=== PATIENT | male | born 1955 | race Caucasian/White ===

== ENCOUNTER 2016-07-20 22:49 | Emergency (ER) | payer OTHER ==
[~2016-07-20] VITALS: Ht 182.9 cm; Wt 115.0 kg
[~2016-07-20 22:49] MED LIST: AMOX1TAB61 PO; METF500T4 PO; MULT-658 PO; MULT1TAB77 PO; OMEG1CAP6 PO; PRED-220 PO; PREG75CA PO; RANI150T6 PO; TERA10CA3 PO; TIOT18CA IH
[2016-07-20 22:55] VITALS: BP 154/67
--- NOTE | 2016-07-20 23:12 | PHYS DOC ---
Past History Past Medical History: Bronchitis, COPD, Diabetes Past Surgical History: Knee Replacement Alcohol Use: None Drug Use: None Adult General Chief Complaint Chief Complaint: SHORTNESS OF BREATH HPI HPI A she is a pleasant 61-year-old male with a known history of COPD although he quit smoking in 1991, history of diabetes on metformin, hypertension who presents with shortness of breath has been ongoing for the last week or so. Patient describes a nonproductive cough chest wall pain with coughing described as a burning with no production of sputum. No fevers, no recent travel, no recent antibiotics. The trauma he is not exertionally short of breath. He has been using his inhaler without a spacer for last week with minimal improvement of his symptoms. He's had no intubations, no recent steroid usage, he has been diagnosed with bronchitis in the past, he also has had a questionable history of sleep apnea for which she is on no oxygen or CPAP at home. is mainly concerned that is progressive shortness of breath is not improving treatments at home. She describes the chest pain as burning worsening with deep breaths and cough not radiating to his neck, his back, or his arms. Review of Systems Review of Systems Constitutional: Denies fever or chills [] Eyes: Denies change in visual acuity, redness, or eye pain [] HENT: Denies nasal congestion or sore throat [] Respiratory: Please of nonproductive cough and shortness of breath Cardiovascular: No additional information not addressed in HPI [] GI: Denies abdominal pain, nausea, vomiting, bloody stools or diarrhea [] : Denies dysuria or hematuria [] Musculoskeletal: Denies back pain or joint pain [] Integument: Denies rash or skin lesions [] Neurologic: Legs of generalized fatigue without focal weakness or headache Endocrine: Denies polyuria or polydipsia [] Current Medications Current Medications Current Medications Medications (Trade) Dose Ordered Sig/Jose M Start Time Stop Time Status Last Admin Dose Admin Albuterol/ Ipratropium (Duoneb) 3 ml 1X ONCE 07/20/16 23:30 07/20/16 23:31 Methylprednisolone Sodium Succinate (SOLU-Medrol 125MG VIAL) 125 mg 1X ONCE 07/20/16 23:30 07/20/16 23:31 Sodium Chloride 1,000 ml @ 1,000 mls/hr Q1H 07/20/16 23:30 07/21/16 00:29 Sodium Chloride (Normal Saline Flush) 10 ml 1X ONCE 07/20/16 23:30 07/20/16 23:31 Allergies Allergies Allergies Coded Allergies Type Severity Reaction Last Updated Verified No Known Drug Allergies 10/21/15 No Physical Exam Physical Exam Added mild tachypnea without hypoxia noted hypertension without fever. Constitutional: Well developed, well nourished, is overweight obviously uncomfortable HENT: Normocephalic, atraumatic, bilateral external ears normal, dry mucous membranes, no oral exudates, nose normal. [] Eyes: PERRLA, EOMI, conjunctiva normal, no discharge. [] Neck: Normal range of motion, no tenderness, supple, no stridor. [] Cardiovascular:Heart rate regular rhythm, no murmur [] Lungs & Thorax: Increased breath sounds bilaterally with localized wheezing in the lower lung page with cough. No course rhonchi Abdomen: Bowel sounds normal, soft, no tenderness, no masses, no pulsatile masses. [] Skin: Warm, dry, no erythema, no rash. [] Back: No tenderness, no CVA tenderness. [] Extremities: No tenderness, no cyanosis, no clubbing, ROM intact, no edema. [] Neurologic: Alert and oriented X 3, normal motor function, normal sensory function, no focal deficits noted. [] Psychologic: Affect normal, judgement normal, mood normal. [] Current Patient Data Vital Signs Vital Sign - Last 24 Hours 07/20/16 07/20/16 07/20/16 22:55 23:19 23:30 Temp 98.1 Pulse 81 Resp 24 22 B/P (MAP) 154/67 (96) Pulse Ox 96 97 97 O2 Delivery Room Air Room Air Room Air Lab Results Laboratory Tests Test 07/20/16 23:30 07/20/16 23:45 White Blood Count 9.7 x10^3/uL (4.0-11.0) Red Blood Count 4.55 x10^6/uL (4.30-5.70) Hemoglobin 13.1 g/dL (13.0-17.5) Hematocrit 38.4 % (39.0-53.0) L Mean Corpuscular Volume 84 fL (79-100) Mean Corpuscular Hemoglobin 29 pg (25-35) Mean Corpuscular Hemoglobin Concent 34 g/dL (31-37) Red Cell Distribution Width 13.7 % (11.5-14.5) Platelet Count 266 x10^3/uL (140-400) Neutrophils (%) (Auto) 57 % (31-73) Lymphocytes (%) (Auto) 31 % (24-48) Monocytes (%) (Auto) 10 % (0-9) H Eosinophils (%) (Auto) 1 % (0-3) Basophils (%) (Auto) 0 % (0-3) Neutrophils # (Auto) 5.6 x10^3uL (1.8-7.7) Lymphocytes # (Auto) 3.0 x10^3/uL (1.0-4.8) Monocytes # (Auto) 1.0 x10^3/uL (0.0-1.1) Eosinophils # (Auto) 0.1 x10^3/uL (0.0-0.7) Basophils # (Auto) 0.0 x10^3/uL (0.0-0.2) Sodium Level 141 mmol/L (136-145) Potassium Level 3.7 mmol/L (3.5-5.1) Chloride Level 104 mmol/L (98-107) Carbon Dioxide Level 31 mmol/L (21-32) Anion Gap 6 (6-14) Blood Urea Nitrogen 15 mg/dL (8-26) Creatinine 1.3 mg/dL (0.7-1.3) Estimated GFR (Cockcroft-Gault) 56.5 BUN/Creatinine Ratio 12 (6-20) Glucose Level 147 mg/dL (70-99) H Calcium Level 9.0 mg/dL (8.5-10.1) Total Bilirubin 0.3 mg/dL (0.2-1.0) Aspartate Amino Transferase (AST) 16 U/L (15-37) Alanine Aminotransferase (ALT) 38 U/L (16-63) Alkaline Phosphatase 88 U/L (46-116) Creatine Kinase 245 U/L (39-308) Creatine Kinase MB (Mass) 1.5 ng/mL (0.0-3.6) Creatine Kinase MB Relative Index 0.6 % (0-4) Troponin I Quantitative < 0.017 ng/mL (0-0.055) SN-Vmo-U-Type Natriuretic Peptide 73 pg/mL (0-124) Total Protein 7.4 g/dL (6.4-8.2) Albumin 3.4 g/dL (3.4-5.0) Albumin/Globulin Ratio 0.9 (1.0-1.7) L Urine Collection Type Unknown Urine Color Yellow Urine Clarity Clear Urine pH 5.5 Urine Specific [place] 1.020 Urine Protein Neg (NEG-TRACE) Urine Glucose (UA) Neg mg/dL (NEG) Urine Ketones (Stick) Trace mg/dL (NEG) Urine Blood Mod (NEG) Urine Nitrite Neg (NEG) Urine Bilirubin Neg (NEG) Urine Urobilinogen Dipstick 1 mg/dL (0.2 mg/dL) Urine Leukocyte Esterase Neg (NEG) Urine RBC 3-5 /HPF (0-2) Urine WBC Occ /HPF (0-4) Urine Squamous Epithelial Cells None /LPF Urine Bacteria Few /HPF (0-FEW) EKG EKG Timed 11:13 PM 07/12/2016 demonstrates sinus rhythm with a heart rate of 68 left axis deviation with a right bundle was brought RR prime noted in V1 and V2 V3 as well as V4 V5 7 change or T-wave inversions consistent with acute coronary ischemia read by Dr. Sutton. [] Radiology/Procedures Radiology/Procedures Chest x-ray read by Dr. Sutton 07/20/2016 at 20 3:14 PM demonstrates mildly hyperinflated lungs increased purulent bronchial cuffing consistent with COPD exacerbation no clear infiltrate consolidation. With a pneumonia there is a slight pleural effusion on the left mild cardiomegaly and diaphragmatic flattening. No evidence of pneumothorax [] Course & Med Decision Making Course & Med Decision Making Pertinent Labs and Imaging studies reviewed. (See chart for details) Patient's nursing notes, vital signs, EKG, chest x-ray, laboratory work all reviewed by me and incorporated into decision to send the patient home with COPD exacerbation/bronchitis. Patient clearly has no signs of cardiac ischemia on EKG by history or by positive troponin. He is not without risk for heart disease and we referred to his primary care doctor for cardiology evaluation given his prior history of hypertension and prior smoking and COPD. His SANTI risk is 1 based on risk factors only. Point in time patient is symptom-free wheezing is resolved patient's chest pain with cough is resolved as well. There is no evidence of pleural effusion, pericardial effusion based on physical exam and chest x-ray, cardiac ischemia, pneumonia, or pneumothorax. Patient given precautions asked to return for any increasing pain fevers greater than 102.2 despite treatment also discussed how to use an inhaler with spacer in the future. Patient be provided short course of steroids, antibiotics, and inhaler with spacer. Also referred back to pulmonology for modification of his present regimen. []Differential diagnosis for chest pain: Pericarditis, myocarditis, endocarditis , pneumothorax, pneumonia, aortic dissection, esophageal spasm, esophagitis, peptic ulcer disease, acute coronary syndrome, mediastinitis, Boerhaave syndrome , musculoskeletal chest wall pain, costochondritis, intercostal strain, rib fracture, pulmonary contusion, pneumonitis, pleural effusion, pericardial effusion, pericardial tamponode, and pleurisy. Impression: COPD exacerbation/bronchitis, chest pain chest wall pain Disposition discharge home with follow-up in 24-48 hours with primary care doctor pulmonary referral placed on antibiotics and steroids, and pain control and inhalers. Dragon Disclaimer Dragon Disclaimer This chart was dictated in whole or in part using Voice Recognition software in a busy, high-work load, and often noisy Emergency Department environment. It may contain unintended and wholly unrecognized errors or omissions. Departure Departure: Impression: Primary Impression: COPD exacerbation Additional Impressions: Bronchitis Chest pain of uncertain etiology Disposition: 01 HOME, SELF-CARE Condition: IMPROVED Referrals: GLADIS SPARKS MD (PCP) Patient Instructions: Bronchitis, Chest Pain (Nonspecific) Additional Instructions: He is return to the ER for any increasing or new symptoms of chest pain shortness of breath or fever despite treatment. I would ask you follow-up with your primary care doctor to go we are primary treatment regiment to improve your utilization of inhalers and reevaluate you for any continued symptoms. I will also ask you follow-up with your primary care doctor to be referred to a cell room operator to receive outpatient stress testing to ensure that your chest pain although today is likely due to muscular skeletal wall pain this is not rule out the possibility of possible cardiac issues of disease and damage. Scripts Prednisone (PREDNISONE) 20 Mg Tablet 3 TAB PO DAILY for 5 Days, #15 TAB Prov: OMARI SUTTON MD 07/21/16 Albuterol Sulfate (PROVENTIL HFA INHALER) 6.7 Gm Hfa.aer.ad 1-2 PUFF IH PRN Q4HRS Y for WHEEZING for 7 Days, INHALER 0 Refills Please dispense inhaler with a spacer Prov: OMARI SUTTON MD 07/21/16 Hydrocodone Bit/Acetaminophen (HYDROCODONE-APAP 5-325 ) 1 Each Tablet 1 TAB PO PRN Q6HRS Y for PAIN for 7 Days, #12 TAB 0 Refills Prov: OMARI SUTTON MD 07/21/16 Azithromycin (AZITHROMYCIN TABLET) 250 Mg Tablet 250 MG PO DAILY for ANTI-BIOTIC for 5 Days, #5 TAB 0 Refills Please take 2 times the first day Please take one tablet day 2 through 5. Prov: OMARI SUTTON MD 07/21/16 Problem Qualifiers OMARI SUTTON MD July 20, 2016 23:12
--- NOTE | 2016-07-20 23:13 | EKG ---
[address] [address] Test Date: 2016-07-20 Test Time: 23:13:57 Pat Name: BRANDIE ESCUDERO Department: Room: Gender: M Route Delivery Clerk: CAROLINE : 1955 Requested By: OMARI SUTTON Order Number: [id number] Reading MD: Arsenio Velasquez Measurements Intervals [place] Rate: 68 P: 29 [place]: 162 QRS: -25 QRSD: 142 T: 24 QT: 408 QTc: 439 Interpretive Statements SINUS RHYTHM LEFTWARD AXIS RIGHT BUNDLE BRANCH BLOCK Electronically Signed On 07-22-2016 10:35:33 CDT by Arsenio Velasquez
[2016-07-20] MEDS ORDERED: IPRATRPIUM/ALBUTEROL 0.5/2.5MG 3 ML NEBU. NEB ONE (23:30)
[2016-07-20] MEDS ORDERED: methylPREDNISolone SOD SUCC PF 125 MG/2 ML VIAL. IV ONE (23:30)
[2016-07-20] MEDS ORDERED: 0.9 % SODIUM CHLORIDE 10 ML DISP.SYRIN. IV ONE (23:30)
[2016-07-20] MEDS ORDERED: fentaNYL PF 100 MCG/2 ML VIAL IV ONE (23:30)
[2016-07-20] MEDS ORDERED: IV NORMAL SALINE 1,000ML 1,000 ML IV SCH (23:30)
[2016-07-20 23:44] LABS: BASO % 0 % (0-3); EOS # 0.1 x10^3/uL (0.0-0.7); EOS % 1 % (0-3); HEMATOCRIT 38.4 % (39.0-53.0); HEMOGLOBIN 13.1 g/dL (13.0-17.5); LYMPH % 31 % (24-48); MEAN CORPUSCULAR HEMOGLOBIN 29 pg (25-35); MEAN CORPUSCULAR HGB CONC 34 g/dL (31-37); MEAN CORPUSCULAR VOLUME 84 fL (79-100); MONO % 10 % (0-9); NEUT # 5.6 x10^3uL (1.8-7.7); NEUT % 57 % (31-73); PLATELET COUNT 266 x10^3/uL (140-400); RED BLOOD COUNT 4.55 x10^6/uL (4.30-5.70); RED CELL DISTRIBUTION WIDTH 13.7 % (11.5-14.5); WHITE BLOOD COUNT 9.7 x10^3/uL (4.0-11.0)
[2016-07-21 00:07] LABS: ALBUMIN 3.4 g/dL (3.4-5.0); ALBUMIN/GLOBULIN RATIO 0.9 (1.0-1.7); CREATININE 1.3 mg/dL (0.7-1.3); GFR 56.5; POTASSIUM 3.7 mmol/L (3.5-5.1); TOTAL BILIRUBIN 0.3 mg/dL (0.2-1.0); TOTAL PROTEIN 7.4 g/dL (6.4-8.2)
[2016-07-21 00:08] LABS: BILIRUBIN,URINE NEG (NEG); CLARITY,URINE CLEAR; COLOR,URINE YELLOW; GLUCOSE,URINE NEG (NEG)
[2016-07-21 00:09] LABS: BACTERIA,URINE FEW /HPF (0-FEW); NITRITE,URINE NEG (NEG); UROBILINOGEN,URINE 1 mg/dL (0.2 mg/dL); WBC,URINE OCC /HPF (0-4)
[2016-07-21] MEDS ORDERED: ALBU6.7H IH (00:35)
[2016-07-21] MEDS ORDERED: HYDR-2758 PO (00:35)
[2016-07-21] MEDS ORDERED: AZIT250T6 PO (00:35)
[2016-07-21] MEDS ORDERED: PRED20TA PO (00:35)
--- NOTE | 2016-07-21 08:09 | RAD ---
PA and lateral chest. History: Cough and short of breath PA and lateral views were taken of the chest. The lungs are free of infiltrates. Heart is normal in size without heart failure. There is no effusion. Impression: 1. No acute chest disease.
== END 2016-07-21 01:00 | disposition home or self-care (01) ==
LOC: ER 22:49
DX: J44.1 Chronic obstructive pulmonary disease with (acute) exacerbation (principal); R07.89 Other chest pain; E11.9 Type 2 diabetes mellitus without complications
CPT/HCPCS: 36415; 71020; 80053; 81001; 82553; 83880; 84484; 85027; 93005; 94640; 96361; 96374; 96375; 99285; J2930; J3010; J7620; J7030

== ENCOUNTER 2016-07-28 17:28 | Observation (INO) | payer OTHER ==
[~2016-07-28] VITALS: Ht 182.9 cm; Wt 114.4 kg
[~2016-07-28 17:28] MED LIST changes: +ALBU6.7H IH; +AZIT250T6 PO; +HYDR-2758 PO; +PRED20TA PO
[2016-07-28] MEDS ORDERED: CONTRAST GIVEN MC PRN (18:30)
[2016-07-28] MEDS ORDERED: IOHEXOL 300 MG/ML 75 ML VIAL. IV ONE (18:30)
[2016-07-28] MEDS ORDERED: IV NORMAL SALINE 1,000ML 1,000 ML IV ONE (18:30)
[2016-07-28 18:46] LABS: BASO % 0 % (0-3); EOS # 0.1 x10^3/uL (0.0-0.7); EOS % 1 % (0-3); HEMATOCRIT 38.6 % (39.0-53.0); LYMPH # 3.5 x10^3/uL (1.0-4.8); LYMPH % 30 % (24-48); MEAN CORPUSCULAR HEMOGLOBIN 28 pg (25-35); MEAN CORPUSCULAR HGB CONC 34 g/dL (31-37); MEAN CORPUSCULAR VOLUME 85 fL (79-100); MONO % 9 % (0-9); NEUT % 60 % (31-73); PLATELET COUNT 266 x10^3/uL (140-400); RED BLOOD COUNT 4.56 x10^6/uL (4.30-5.70); RED CELL DISTRIBUTION WIDTH 13.8 % (11.5-14.5); WHITE BLOOD COUNT 11.7 x10^3/uL (4.0-11.0)
[2016-07-28 18:55] LABS: ALBUMIN 3.4 g/dL (3.4-5.0); CALCIUM 8.6 mg/dL (8.5-10.1); CREATININE 1.3 mg/dL (0.7-1.3); GFR 56.5; POTASSIUM 3.9 mmol/L (3.5-5.1); TOTAL BILIRUBIN 0.3 mg/dL (0.2-1.0); TOTAL PROTEIN 6.8 g/dL (6.4-8.2)
--- NOTE | 2016-07-28 20:02 | RAD ---
Exam performed: CT pulmonary angiogram of the chest with contrast. Date: 07/28/2016. Comparison: CT pulmonary angiogram from 10/21/2015 Indication: Chest pain and shortness of air with lightheadedness and dizziness today Technique: Contiguous helical acquisitions are obtained during intravenous administration of 75 cc of Omnipaque 300. Sagittal and coronal MIP images were obtained and reviewed Findings: The structures at the thoracic inlet including both lobes of the thyroid gland appear normal. Pulmonary arterial opacification is adequate to evaluate for pulmonary embolus. There is no evidence for pulmonary embolism. The heart is normal in size. No pericardial effusion is seen. No mediastinal or hilar lymphadenopathy is seen. No infiltrates or pleural effusions are seen. No pulmonary nodules are detected. Upper abdominal structures appear unremarkable. Osseous structures appear intact. Impression: 1. Study is negative for pulmonary embolism. 2. No additional pulmonary abnormality noted. PQRS Compliance Statement: One or more of the following individualized dose reduction techniques were utilized for this examination: 1. Automated exposure control 2. Adjustment of the mA and/or kV according to patient size 3. Use of iterative reconstruction technique Electronically signed by: Leah Goyal MD (07/28/2016 7:59 PM)
[2016-07-28] MEDS ORDERED: NITROGLYCERIN SUBLINGUAL 0.4 MG BOTTLE OF 25. SL PRN (20:45)
[2016-07-28] MEDS ORDERED: ACETAMINOPHEN 325 MG TABLET PO PRN (20:45)
[2016-07-28] MEDS ORDERED: MORPHINE SULFATE 4 MG/ML DISP.SYRIN. IV PRN (20:45)
[2016-07-28] MEDS ORDERED: ONDANSETRON PF 4 MG/2 ML VIAL. IV PRN (20:45)
[2016-07-28 22:12] VITALS: BP 153/85
[2016-07-28] MEDS ORDERED: DIAZ5TAB PO (22:17)
[2016-07-28] MEDS ORDERED: CYCL-331 PO ×2 (22:17)
[2016-07-28] MEDS ORDERED: GUAI600T28 PO (22:17)
[2016-07-28] MEDS ORDERED: TRAM50TA PO (22:17)
[2016-07-28] MEDS ORDERED: ASPIRIN 325 MG TABLET PO ONE (22:30)
[2016-07-28] MEDS: TERAZOSIN 5 MG CAPSULE. PO SCH (22:45)
--- NOTE | 2016-07-29 01:17 | PHYS DOC ---
Past History Past Medical History: Bronchitis, COPD, Diabetes Past Surgical History: Knee Replacement Alcohol Use: None Drug Use: None Adult General Chief Complaint Chief Complaint: CHEST PAIN HPI HPI Patient is a 61 year old M who presents with chest pressure for the past day. Patient was seen in the emergency room approximately a little over a week ago for URI symptoms and was followed up with his PCP and described chest pressure. Patient's PCP sent the patient to the emergency room for further cardiac evaluation. Patient's cardiac risk factors are positive for smoking and diabetes patient denies hypertension, hyperlipidemia and has no history of a PE or NV. Patient has a history of COPD. Patient denies any shortness of breath. Patient denies any fevers. Patient denies any nausea/vomiting/diarrhea. Patient has no other complaints. Pertinent exam findings: Heart was regular rate and rhythm without murmurs Lungs were clear to auscultation bilaterally without crackles wheezes or rales ED course: Patient was seen and examined CBC, CMP, troponin, EKG, chest x-ray, CT angiogram of the chest were ordered 2015: Discussed results with the patient and reevaluate the patient when she was still having chest pressure therefore decided to admit the patient for persistent cardiac symptoms 2332: Discussed CC/HP/PMH with Dr. Dejesus and recommends admit and consult cardiology Pertinent findings: EKG shows normal sinus rhythm rate of 72 no STEMI, right bundle-branch block, no change from previous EKGs Troponin was negative CT angios the chest shows no PE or dissection MDM: After reviewing the chart, CC/HPI/PMH, physical exam, [lab results], [ radiological results], I do not believe the patient is having acute NV, PE, thoracic aortic dissection. However given the patient's persistent cardiac symptoms will admit the patient for cardiac observation and further workup. Review of Systems Review of Systems GEN: Denies fevers, chills, sweats HEENT: Denies blurred vision, sore throat CV: chest pain RESP: Denies shortness of air, cough GI: Denies n/v/d NEURO: Denies confusion, dizziness MSK: Denies weakness, joint pain/swelling Current Medications Current Medications Current Medications Medications (Trade) Dose Ordered Sig/Jose M Start Time Stop Time Status Last Admin Dose Admin Info (Do NOT chart on this entry -- for MONITORING) 1 each PRN DAILY PRN 07/28/16 18:30 6/7/17 18:29 Iohexol (Omnipaque 300 Mg/ml) 75 ml 1X ONCE 07/28/16 18:30 07/28/16 18:31 DC 07/28/16 18:58 75 ML Sodium Chloride 1,000 ml @ 1,000 mls/hr 1X ONCE 07/28/16 18:30 07/28/16 19:29 DC 07/28/16 18:00 1,000 MLS/HR Allergies Allergies Allergies Coded Allergies Type Severity Reaction Last Updated Verified No Known Drug Allergies 10/21/15 No Physical Exam Physical Exam GEN.: No apparent distress. Alert and oriented. HEENT: Head is normocephalic, atraumatic NECK: Supple. LUNGS: CTAB. HEART: RRR, S1, S2 present. Peripheral pulses intact ABDOMEN: Soft, nontender. Positive bowel sounds. EXTREMITIES: Without any cyanosis. NEUROLOGIC: Normal speech, normal tone PSYCHIATRIC: Normal affect, normal mood. SKIN: No ulcerations Current Patient Data Vital Signs Vital Signs Date Time Temp Pulse Resp B/P (MAP) Pulse Ox O2 Delivery O2 Flow Rate FiO2 07/28/16 22:45 62 153/85 07/28/16 22:12 97.7 22 96 Room Air Lab Results Laboratory Tests Test 07/28/16 18:05 07/28/16 18:16 White Blood Count 11.7 x10^3/uL (4.0-11.0) H Red Blood Count 4.56 x10^6/uL (4.30-5.70) Hemoglobin 13.0 g/dL (13.0-17.5) Hematocrit 38.6 % (39.0-53.0) L Mean Corpuscular Volume 85 fL (79-100) Mean Corpuscular Hemoglobin 28 pg (25-35) Mean Corpuscular Hemoglobin Concent 34 g/dL (31-37) Red Cell Distribution Width 13.8 % (11.5-14.5) Platelet Count 266 x10^3/uL (140-400) Neutrophils (%) (Auto) 60 % (31-73) Lymphocytes (%) (Auto) 30 % (24-48) Monocytes (%) (Auto) 9 % (0-9) Eosinophils (%) (Auto) 1 % (0-3) Basophils (%) (Auto) 0 % (0-3) Neutrophils # (Auto) 7.0 x10^3uL (1.8-7.7) Lymphocytes # (Auto) 3.5 x10^3/uL (1.0-4.8) Monocytes # (Auto) 1.0 x10^3/uL (0.0-1.1) Eosinophils # (Auto) 0.1 x10^3/uL (0.0-0.7) Basophils # (Auto) 0.0 x10^3/uL (0.0-0.2) Sodium Level 140 mmol/L (136-145) Potassium Level 3.9 mmol/L (3.5-5.1) Chloride Level 103 mmol/L (98-107) Carbon Dioxide Level 32 mmol/L (21-32) Anion Gap 5 (6-14) L Blood Urea Nitrogen 19 mg/dL (8-26) Creatinine 1.3 mg/dL (0.7-1.3) Estimated GFR (Cockcroft-Gault) 56.5 BUN/Creatinine Ratio 15 (6-20) Glucose Level 117 mg/dL (70-99) H Calcium Level 8.6 mg/dL (8.5-10.1) Total Bilirubin 0.3 mg/dL (0.2-1.0) Aspartate Amino Transferase (AST) 12 U/L (15-37) L Alanine Aminotransferase (ALT) 34 U/L (16-63) Alkaline Phosphatase 79 U/L (46-116) Total Protein 6.8 g/dL (6.4-8.2) Albumin 3.4 g/dL (3.4-5.0) Albumin/Globulin Ratio 1.0 (1.0-1.7) POC Troponin I 0.01 ng/ml (<0.08) EKG EKG EKG shows normal sinus rhythm rate of 72 no STEMI [] Radiology/Procedures Radiology/Procedures Chest x-ray is an NAD, CT angiogram shows no PE or thoracic aortic dissection [] Course & Med Decision Making Course & Med Decision Making Pertinent Labs and Imaging studies reviewed. (See chart for details) [] Dragon Disclaimer Dragon Disclaimer This chart was dictated in whole or in part using Voice Recognition software in a busy, high-work load, and often noisy Emergency Department environment. It may contain unintended and wholly unrecognized errors or omissions. Departure Departure: Impression: Primary Impression: Chest pain Disposition: 09 ADMITTED INPATIENT Admitting Physician: Angelina Dejesus Condition: GOOD Referrals: EULALIO GAMEZ (PCP) Problem Qualifiers Primary Impression: Chest pain Chest pain type: unspecified Qualified Codes: R07.9 - Chest pain, unspecified DARINEL PRESLEY DO Jul 29, 2016 01:17
--- NOTE | 2016-07-29 04:42 | EKG ---
[address] [address] Test Date: 2016-07-28 Test Time: 17:57:57 Pat Name: BRANDIE ESCUDERO Department: Room: 105 A Gender: M Senior Applications Engineer: AMY : 1955 Requested By: DARINEL PRESLEY Order Number: [id number] Reading MD: Mil Oden Measurements Intervals [place] Rate: 72 P: 46 [place]: 130 QRS: 6 QRSD: 138 T: 51 QT: 400 QTc: 444 Interpretive Statements SINUS RHYTHM RIGHT BUNDLE BRANCH BLOCK RI6.01 Unconfirmed report Compared to ECG 07/20/2016 23:13:57 Left-axis deviation no longer present Electronically Signed On 07-30-2016 9:56:04 CDT by Mil Oden
[2016-07-29 05:38] VITALS: BP 123/79
[2016-07-29] MEDS ORDERED: traMADol 50 MG TABLET PO PRN (07:45)
[2016-07-29] MEDS ORDERED: CYCLOBENZAPRINE 10 MG TABLET. PO PRN (07:45)
[2016-07-29] MEDS ORDERED: ALBUTEROL SULFATE 8GM INHALER. IH PRN (07:45)
[2016-07-29] MEDS ORDERED: HYDROcodone/APAP 5/325MG 1 TAB TABLET PO PRN (07:45)
[2016-07-29] MEDS ORDERED: diazePAM 5 MG TABLET PO PRN (07:45)
[2016-07-29 07:59] LABS: BASO % 0 % (0-3); EOS # 0.2 x10^3/uL (0.0-0.7); EOS % 3 % (0-3); HEMOGLOBIN 12.7 g/dL (13.0-17.5); LYMPH # 2.7 x10^3/uL (1.0-4.8); LYMPH % 31 % (24-48); MEAN CORPUSCULAR HEMOGLOBIN 28 pg (25-35); MEAN CORPUSCULAR HGB CONC 33 g/dL (31-37); MEAN CORPUSCULAR VOLUME 85 fL (79-100); MONO # 0.9 x10^3/uL (0.0-1.1); MONO % 11 % (0-9); NEUT # 4.7 x10^3uL (1.8-7.7); NEUT % 55 % (31-73); PLATELET COUNT 245 x10^3/uL (140-400); RED BLOOD COUNT 4.48 x10^6/uL (4.30-5.70); RED CELL DISTRIBUTION WIDTH 13.9 % (11.5-14.5); WHITE BLOOD COUNT 8.6 x10^3/uL (4.0-11.0)
[2016-07-29] MEDS ORDERED: ALBUTEROL SULFATE 2.5 MG/3 ML NEBU. NEB PRN (08:00)
[2016-07-29 08:04] LABS: CALCIUM 8.4 mg/dL (8.5-10.1); CREATININE 1.1 mg/dL (0.7-1.3); GFR 68.5; POTASSIUM 4.3 mmol/L (3.5-5.1)
--- NOTE | 2016-07-29 08:17 | RAD ---
Indication chest pain and shortness of breath. A single view of the chest was obtained and is compared to an examination 07/20/2016. There is mild enlargement of the cardiac silhouette similar to the previous exam. There is no congestive heart failure. No consolidated pneumonia is seen. Significant pleural fluid is not seen. There is no pneumothorax. IMPRESSION: No acute or focal process seen in the chest
[2016-07-29] MEDS: OMEGA-3 FATTY ACIDS/FISH OIL 1,000 MG CAPSULE. PO SCH (08:22)
[2016-07-29] MEDS: MULTIVITAMIN I-VITE TABLET. PO SCH (08:22)
[2016-07-29] MEDS: FAMOTIDINE 20 MG TABLET PO SCH ×2 (08:22→21:15)
[2016-07-29] MEDS: CYCLOBENZAPRINE 10 MG TABLET. PO SCH ×3 (08:22→21:14)
[2016-07-29] MEDS: PREGABALIN 75 MG CAPSULE PO SCH ×2 (08:22→21:14)
[2016-07-29] MEDS ORDERED: MULTIVITAMIN with MINERAL TABLET. PO SCH (09:00)
[2016-07-29] MEDS ORDERED: metFORMIN 500 MG TABLET PO SCH (09:00)
[2016-07-29] MEDS ORDERED: NON FORMULARY ITEM (Tiotropium Bromide (Spiriva) 1 CAP) IH SCH (09:00)
--- NOTE | 2016-07-29 09:40 | PDOC2 ---
CONSULT Date of Admission DATE: 07/29/16 TIME: 09:32 Reason for Consult: cp Problem List Problems Medical Problems: (1) Chest pain Status: Acute History of Present Illness Mr Britt is a 61 year old male who presented to the ED with complaints of chest discomfort. He reports having bronchitis for the last several days but that it is improving. He was at the commissary shopping and was feeling somewhat off balance. when he go to checkout he reports lightheadedness and pallor that was commented on by the cafeteria clerk. He complains of chest pain he describes as initially sharp then a pressure that has been occurring off and on for a couple weeks. He notices the discomfort more with exertion/walking and reports associated diaphoresis and dyspnea. He is currently pain free. He denies congestive symptoms, palpitations or syncope. Past Medical History COPD GERD Fibromyalgia BPH Diabetes mellitus type 2 Obstructive sleep apnea Echo 09/2015 Left ventricle systolic function is normal. The Ejection Fraction is 50-55%. There is normal LV segmental wall motion. Doppler and Color Flow revealed trace to mild tricuspid regurgitation. The PA pressure was estimated at 23 mmHg. Past Surgical History Left knee replacement and left plantar fasciotomy. Family History negative for premature CAD Social History Patient quit smoking in 1991 and denied alcohol or drug use Current Medications Current Medications Sodium Chloride 1,000 ml @ 1,000 mls/hr 1X ONCE IV Last administered on 18:00; Start 07/28/16 at 18:30; Stop 07/28/16 at 19:29; Status DC Iohexol (Omnipaque 300 Mg/ml) 75 ml 1X ONCE IV Last administered on 07/28/16 18:58; Start 07/28/16 at 18:30; Stop 07/28/16 at 18:31; Status DC Info (Do NOT chart on this entry -- for MONITORING) 1 each PRN DAILY PRN MC SEE COMMENTS; Start 07/28/16 at 18:30; Stop 07/30/16 at 18:29 Ondansetron HCl (Zofran) 4 mg PRN Q4HRS PRN IV NAUSEA/VOMITING; Start 07/28/16 at 20:45; Stop 07/29/16 at 20:44 Morphine Sulfate (Morphine 4mg Syringe) 4 mg PRN Q2HR PRN IV PAIN Last administered on 07/28/16 22:01; Start 07/28/16 at 20:45; Stop 07/29/16 at 20:44 Acetaminophen (Tylenol) 650 mg PRN Q4HRS PRN PO FEVER; Start 07/28/16 at 20:45; Stop 07/29/16 at 20:44 Nitroglycerin (Nitrostat) 0.4 mg PRN Q5MIN PRN SL CHEST PAIN; Start 07/28/16 at 20:45; Stop 07/29/16 at 20:44 Terazosin HCl (Hytrin) 10 mg QHS PO Last administered on 07/28/16 22:45; Start 07/28/16 at 22:45 Aspirin (Gilberto Aspirin) 325 mg 1X ONCE PO Last administered on 07/28/16 22:30 ; Start 07/28/16 at 22:30; Stop 07/28/16 at 22:31; Status DC Albuterol Sulfate (Ventolin Hfa) PRN PRN Q4HRS PRN IH WHEEZING; Start 07/29/16 at 07:45; Stop 07/29/16 at 07:53; Status DC Cyclobenzaprine HCl (Flexeril) 10 mg PRN QHS PRN PO PAIN; Start 07/29/16 at 07: 45 Cyclobenzaprine HCl (Flexeril) 10 mg TID PO Last administered on 07/29/16 08:22 ; Start 07/29/16 at 09:00 Diazepam (Valium) 5 mg PRN QHS PRN PO sleep; Start 07/29/16 at 07:45 Guaifenesin (Mucinex Er) 1,200 mg BID PO ; Start 07/29/16 at 09:00 Acetaminophen/ Hydrocodone Bitart (Lortab 5/325) 1 tab PRN Q6HRS PRN PO PAIN; Start 07/29/16 at 07:45 Metformin HCl (Glucophage) 500 mg BID PO ; Start 07/29/16 at 09:00; Stop 07/29/16 at 09:00; Status DC Fish Oil (Fish Oil) 1,000 mg DAILY PO Last administered on 07/29/16 08:22; Start 07/29/16 at 09:00 Pregabalin (Lyrica) 150 mg BID PO Last administered on 07/29/16 08:22; Start at 09:00 Tramadol HCl (Ultram) 50 mg PRN Q6HRS PRN PO PAIN; Start 07/29/16 at 07:45 Multivitamins/ Calcium (Thera-M Plus) 1 tab DAILY PO ; Start 07/29/16 at 09:00; Stop 07/29/16 at 09:00; Status DC Multivitamins/ Minerals (I-Veronique) 1 tab DAILY PO Last administered on 07/29/16t 08:22; Start 07/29/16 at 09:00 Famotidine (Pepcid) 20 mg BID PO Last administered on 07/29/16t 08:22; Start 07/29/16 at 09:00 Non-Formulary Medication 1 cap DAILY IH ; Start 07/29/16 at 09:00; Stop 07/29/16 at 09:00; Status DC Albuterol/ Ipratropium (Duoneb) 3 ml RTQID NEB ; Start 07/29/16 at 08:00 Albuterol Sulfate (Ventolin) 2.5 mg PRN Q4HRS PRN NEB SHORTNESS OF BREATH; Start 07/29/16 at 08:00 Active Scripts Active Proventil Hfa Inhaler (Albuterol Sulfate) 6.7 Gm Hfa.aer.ad 1-2 Puff IH PRN Q4HRS PRN 7 Days Please dispense inhaler with a spacer Hydrocodone-Apap 5-325 (Hydrocodone Bit/Acetaminophen) 1 Each Tablet 1 Tab PO PRN Q6HRS PRN 7 Days Spiriva (Tiotropium [place]hee) 18 Mcg Cap.w.dev 1 Cap IH DAILY Reported Cyclobenzaprine Hcl 10 Mg Tablet 1 Tab PO PRN QHS PRN Valium (Diazepam) 5 Mg Tablet 5 Mg PO PRN QHS PRN Tramadol Hcl (Tramadol HCl) 50 Mg Tablet 50 Mg PO PRN Q6HRS PRN Guaifenesin 600 Mg Tablet.er 2 Tab PO BID Cyclobenzaprine Hcl 10 Mg Tablet 1 Tab PO TID Terazosin Hcl 10 Mg Capsule 1 Cap PO HS LAST DOSE GIVEN: DATE: TIME: NEXT DOSE DUE: DATE: TIME: Fish Oil 1,000 Mg Capsule (Morris-3 Fatty Acids/Fish Oil) 1 Each Capsule 1 Each PO DAILY LAST DOSE GIVEN: DATE: TIME: NEXT DOSE DUE: DATE: TIME: Metformin Hcl 500 Mg Tablet 1 Tab PO BID LAST DOSE GIVEN: DATE: TIME: NEXT DOSE DUE: DATE: TIME: Centrum Silver Tablet (Multivits-Min/Fa/Lycopene/Lut) 1 Each Tablet 1 Each PO DAILY LAST DOSE GIVEN: DATE: TIME: NEXT DOSE DUE: DATE: TIME: Thera (Multivitamins,Therapeutic) 1 Each Tablet 1 Each PO DAILY LAST DOSE GIVEN: DATE: TIME: NEXT DOSE DUE: DATE: TIME: Zantac (Ranitidine Hcl) 150 Mg Tablet 1 Tab PO BID LAST DOSE GIVEN: DATE: TIME: NEXT DOSE DUE: DATE: TIME: Lyrica (Pregabalin) 75 Mg Capsule 150 Mg PO BID LAST DOSE GIVEN: DATE: TIME: NEXT DOSE DUE: DATE: TIME: Allergies: Coded Allergies: No Known Drug Allergies (Unverified , 10/21/15) General: YES: Malaise Respiratory: YES: Cough, Shortness of breath Cardiovascular: yes: Chest Pain, Lt Headedness General: Alert, Oriented X3, Cooperative, No acute distress HEENT: Atraumatic, EOMI Lungs: Other (left basilar crackles that clear with cough) Heart: Regular rate, Normal S1, Normal S2 Abdomen: Normal bowel sounds, Soft, No tenderness Extremities: No edema, Normal pulses Neuro: Normal speech, Strength at 5/5 X4 ext Psych/Mental Status: Mental status NL, Mood NL VITALS Vital Signs Date Time Temp Pulse Resp B/P (MAP) Pulse Ox O2 Delivery O2 Flow Rate FiO2 07/29/16 05:38 97.5 72 16 123/79 (94) 93 Room Air Labs Laboratory Tests Test 07/28/16 18:05 07/28/16 18:16 07/29/16 01:35 07/29/16 07:22 White Blood Count 11.7 x10^3/uL (4.0-11.0) Red Blood Count 4.56 x10^6/uL (4.30-5.70) Hemoglobin 13.0 g/dL (13.0-17.5) Hematocrit 38.6 % (39.0-53.0) Mean Corpuscular Volume 85 fL (79-100) Mean Corpuscular Hemoglobin 28 pg (25-35) Mean Corpuscular Hemoglobin Concent 34 g/dL (31-37) Red Cell Distribution Width 13.8 % (11.5-14.5) Platelet Count 266 x10^3/uL (140-400) Neutrophils (%) (Auto) 60 % (31-73) Lymphocytes (%) (Auto) 30 % (24-48) Monocytes (%) (Auto) 9 % (0-9) Eosinophils (%) (Auto) 1 % (0-3) Basophils (%) (Auto) 0 % (0-3) Neutrophils # (Auto) 7.0 x10^3uL (1.8-7.7) Lymphocytes # (Auto) 3.5 x10^3/uL (1.0-4.8) Monocytes # (Auto) 1.0 x10^3/uL (0.0-1.1) Eosinophils # (Auto) 0.1 x10^3/uL (0.0-0.7) Basophils # (Auto) 0.0 x10^3/uL (0.0-0.2) Sodium Level 140 mmol/L (136-145) Potassium Level 3.9 mmol/L (3.5-5.1) Chloride Level 103 mmol/L (98-107) Carbon Dioxide Level 32 mmol/L (21-32) Anion Gap 5 (6-14) Blood Urea Nitrogen 19 mg/dL (8-26) Creatinine 1.3 mg/dL (0.7-1.3) Estimated GFR (Cockcroft-Gault) 56.5 BUN/Creatinine Ratio 15 (6-20) Glucose Level 117 mg/dL (70-99) Calcium Level 8.6 mg/dL (8.5-10.1) Total Bilirubin 0.3 mg/dL (0.2-1.0) Aspartate Amino Transf (AST/SGOT) 12 U/L (15-37) Alanine Aminotransferase (ALT/SGPT) 34 U/L (16-63) Alkaline Phosphatase 79 U/L (46-116) Total Protein 6.8 g/dL (6.4-8.2) Albumin 3.4 g/dL (3.4-5.0) Albumin/Globulin Ratio 1.0 (1.0-1.7) Bedside Troponin I 0.01 ng/ml (<0.08) Troponin I Quantitative < 0.017 ng/mL (0-0.055) Glucose (Fingerstick) 92 mg/dL (70-99) Test 07/29/16 07:45 White Blood Count 8.6 x10^3/uL (4.0-11.0) Red Blood Count 4.48 x10^6/uL (4.30-5.70) Hemoglobin 12.7 g/dL (13.0-17.5) Hematocrit 38.0 % (39.0-53.0) Mean Corpuscular Volume 85 fL (79-100) Mean Corpuscular Hemoglobin 28 pg (25-35) Mean Corpuscular Hemoglobin Concent 33 g/dL (31-37) Red Cell Distribution Width 13.9 % (11.5-14.5) Platelet Count 245 x10^3/uL (140-400) Neutrophils (%) (Auto) 55 % (31-73) Lymphocytes (%) (Auto) 31 % (24-48) Monocytes (%) (Auto) 11 % (0-9) Eosinophils (%) (Auto) 3 % (0-3) Basophils (%) (Auto) 0 % (0-3) Neutrophils # (Auto) 4.7 x10^3uL (1.8-7.7) Lymphocytes # (Auto) 2.7 x10^3/uL (1.0-4.8) Monocytes # (Auto) 0.9 x10^3/uL (0.0-1.1) Eosinophils # (Auto) 0.2 x10^3/uL (0.0-0.7) Basophils # (Auto) 0.0 x10^3/uL (0.0-0.2) Sodium Level 142 mmol/L (136-145) Potassium Level 4.3 mmol/L (3.5-5.1) Chloride Level 106 mmol/L (98-107) Carbon Dioxide Level 31 mmol/L (21-32) Anion Gap 5 (6-14) Blood Urea Nitrogen 18 mg/dL (8-26) Creatinine 1.1 mg/dL (0.7-1.3) Estimated GFR (Cockcroft-Gault) 68.5 Glucose Level 105 mg/dL (70-99) Calcium Level 8.4 mg/dL (8.5-10.1) Troponin I Quantitative < 0.017 ng/mL (0-0.055) Images EKG - sinus rhythm, RBBB, no acute ischemic changes CTA - Impression: 1. Study is negative for pulmonary embolism. 2. No additional pulmonary abnormality noted. CXR - IMPRESSION: No acute or focal process seen in the chest Assessment/Plan 1. chest pain, exertional - RI ruled out, no acute ischemic changes on EKG. Suggest echo and MPI in am. 2. borderline hypertension - monitor 3. diabetes mellitus - per PCP 4. bronchitis - per PCP 5. 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
[2016-07-29] MEDS: IPRATRPIUM/ALBUTEROL 0.5/2.5MG 3 ML NEBU. NEB SCH ×4 (10:23→20:34)
[2016-07-29 10:32] VITALS: BP 130/73
--- NOTE | 2016-07-29 14:37 | CARD ---
APPROVED REPORT EXAM: Two-dimensional and M-mode echocardiogram with Doppler and color Doppler. Other Information Quality : GoodHR: 70bpm Rhythm : NSR INDICATION Chest Pain RISK FACTORS Hypertension Diabetes 2D DIMENSIONS RVDd3.3 (2.9-3.5cm)Left Atrium(2D)3.8 (1.6-4.0cm) IVSd1.0 (0.7-1.1cm)Aortic Root(2D)3.4 (2.0-3.7cm) LVDd4.4 (3.9-5.9cm)LVOT Diameter2.5 (1.8-2.4cm) PWd1.0 (0.7-1.1cm)LVDs3.0 (2.5-4.0cm) FS (%) 32.2 %SV53.8 ml LVEF(%)60.6 (>50%) Aortic Valve AoV Peak Oliver.198.7cm/sAoV VTI35.5cm AO Peak GR.15.8mmHgLVOT Peak Oliver.104.7cm/s LVOT VTI 21.31cmAO Mean GR.8mmHg YOJANA (VMAX)2.73kw2QRX (VTI)2.94cm2 Mitral Valve MV E Ilszolys26.4cm/sMV DECEL LSMZ358de MV A Hfudljse51.7cm/sE/A Ratio1.0 MV A Mspjynea883rr Pulmonary Valve PV Peak Oesivrqq94.1cm/sPV Peak Grad.4mmHg Tricuspid Valve TR P. Vpbfpmiz646hp/sTR Peak Gr.19mmHg Pulmonary Vein S1 Ntffwwwe80.6cm/sD2 Ghvpkhpb73.4cm/s LEFT VENTRICLE The left ventricle is normal size. There is normal left ventricular wall thickness. The left ventricu lar systolic function is normal. The Ejection Fraction is 60-65%. There is normal LV segmental wall m otion. Transmitral Doppler flow pattern is Grade II-pseudonormal filling dynamics. RIGHT VENTRICLE The right ventricle is normal size. There is normal right ventricular wall thickness. The right ventr icular systolic function is normal. ATRIA The left atrium size is normal. The right atrium size is normal. The interatrial septum is intact wit h no evidence for an atrial septal defect or patent foramen ovale as noted on 2-D or Doppler imaging. AORTIC VALVE The aortic valve is mildly thickened. The aortic valve is trileaflet. Doppler and Color Flow revealed no significant aortic regurgitation. There is no significant aortic valvular stenosis. MITRAL VALVE Mitral annular calcification is mild. The mitral valve leaflets are thickened. There is no evidence o f mitral valve prolapse. There is no mitral valve stenosis. Doppler and Color Flow revealed no mitral valve regurgitation noted. TRICUSPID VALVE Doppler and Color Flow revealed trace to mild tricuspid regurgitation. The pulmonary artery systolic pressure is estimated at 22 mmHg. There is no pulmonary hypertension. PULMONIC VALVE Doppler and Color Flow revealed trace pulmonic valvular regurgitation. There is no pulmonic valvular stenosis. GREAT VESSELS The aortic root is normal in size. The ascending aorta is normal in size. The pulmonary artery is nor mal. The IVC is normal in size and collapses >50% with inspiration. PERICARDIAL EFFUSION There is no evidence of significant pericardial effusion. Critical Notification Critical Value: No <Conclusion> The left ventricular systolic function is normal. The Ejection Fraction is 60-65%. There is normal LV segmental wall motion. Doppler and Color Flow revealed trace to mild tricuspid regurgitation. The pulmonary artery systolic pressure is estimated at 22 mmHg. There is no evidence of significant pericardial effusion.
[2016-07-29 14:40] VITALS: BP 164/67
--- NOTE | 2016-07-29 17:04 | HP ---
ADMIT DATE: 07/28/2016 HISTORY OF PRESENT ILLNESS: The patient is a 61-year-old male patient who came to the Emergency Room complaining of chest discomfort. He stated he has upper respiratory tract infection several days that is improving. He was shopping and was feeling somewhat off balance. At the check point he became lightheaded and pale and the grocery clerk stocking has commented on that. He complained also of chest pain that he describes as sharp and pressure like that has been coming and going for the last couple of weeks. He has discomfort more on exertion and walking. He reports that the discomfort is associated with diaphoresis and shortness of breath; however, he denied any orthopnea or paroxysmal nocturnal dyspnea. He was seen in the Emergency Room, was extensively investigated. He has 2 sets of cardiac enzyme. His first set of cardiac enzyme was normal and his EKG showed that he was in sinus rhythm with right bundle branch block with no ischemic changes and the patient was admitted to do 2 more sets of cardiac enzyme, consult the Cardiology team and to check his fasting lipid profile. PAST MEDICAL HISTORY: Significant for chronic obstructive pulmonary disease, gastroesophageal reflux disease, fibromyalgia, benign prostatic hypertrophy, type 2 diabetes mellitus and obstructive sleep apnea. PAST SURGICAL HISTORY: Significant for right carpal tunnel release, left inguinal hernia repair and left total knee arthroplasty. He underwent esophagogastroduodenoscopy as well as colonoscopy and both of them were apparently unremarkable. ALLERGIES: He has no known drug allergies. MEDICATIONS: He is currently on following medications: Albuterol sulfate 1-2 puffs every 4 hours as needed, cyclobenzaprine 10 mg 3 times a day and as needed and cyclobenzaprine 10 mg at bedtime, diazepam 5 mg at bedtime, Mucinex 1200 mg twice a day, hydrocodone/APAP 5/325 one tablet every 6 hours, metformin 500 mg twice a day, multivitamin 1 tablet once a day, omega-3 fatty acid 1000 mg daily, he is on pregabalin 150 mg twice a day, ranitidine 150 mg twice a day, terazosin 10 mg at bedtime, Spiriva HandiHaler 1 inhalation once a day and tramadol 50 mg every 6 hours as needed. FAMILY HISTORY: His father at the age of 88 because of pneumonia and mother at the age of 58 because of thyroid cancer. He has three brothers, one of them at the age of 60 because of alcoholism. He has 5 sisters, one of them has diabetes mellitus and pancreatitis and one of them has cancer of the stomach. SOCIAL HISTORY: He is , has an adopted daughter, quit smoking in 1991, does not drink alcohol or use any recreational drugs. 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 REVIEW OF SYSTEMS: The patient denied any blurring of vision, cataract, glaucoma or macular degeneration. Denied any earache, tinnitus, but does have bilateral hearing aids. He denied any nosebleeds, stuffy nose or postnasal drip. Denied any sore throat, sore tongue, toothache, hoarseness of voice or difficulty swallowing. He denied any nausea, vomiting, diarrhea or constipation. Denied any hematemesis, melena or hematochezia. He denied any dysuria, frequency or hematuria. He does obviously complain of shortness of breath and chest pain and discomfort. Denied any nausea, vomiting. Did complain of dizziness, lightheadedness. Denied any chills, rigors or fever. PHYSICAL EXAMINATION: GENERAL: On arrival to the Emergency Room, he looked well and was clearly in no apparent respiratory distress. VITAL SIGNS: His heart rate was 79, blood pressure was 138/78, temperature was 98.2, respiratory rate was 16 and oxygen saturation was 95% on room air. HEAD, EYES, EARS, NOSE AND THROAT: Showed normocephalic, atraumatic. NECK: Supple. HEART: Showed normal first and second heart sounds with no gallop, rub or murmur. CHEST: Clear to auscultation. No crepitation or rhonchi. ABDOMEN: Distended, soft, nontender. NEUROLOGIC: He was awake, alert, somewhat hard of hearing, but all other cranial nerves are intact. EXTREMITIES: He moves extremities without difficulty. He ambulates without assistance or assistive devices. LABORATORY DATA: In the Emergency Room showed serum sodium of 140, potassium 3.9, chloride 103, bicarbonate 32, anion gap of 5, BUN 19, creatinine 1.3, estimated GFR was 56 mL per minute. His glucose was 117. Calcium was 8.6. Total bilirubin, AST, ALT, alkaline phosphatase were normal. His troponin was less than 0.017. His total protein was 6.8, albumin 3.4. His EKG showed that he was in sinus rhythm with right bundle branch block. ASSESSMENT AND PLAN: The patient was admitted to the hospital to do 2 more sets of cardiac enzymes, check his fasting lipid profile and consult the cardiology team. Meanwhile, we will continue with all his home medications. JOHNNY AGUIRRE MD DR: LIDIA/ron JOB#: [id number] / [id number]
[2016-07-29 18:28] VITALS: BP 126/73
[2016-07-29] MEDS: TERAZOSIN 5 MG CAPSULE. PO SCH (21:14)
[2016-07-29 23:30] VITALS: BP 129/81
--- NOTE | 2016-07-30 03:21 | PN ---
DATE: 07/29/2016 SUBJECTIVE: The patient was admitted yesterday with chest discomfort associated with diaphoresis and shortness of breath. His EKG showed that he was in sinus rhythm and right bundle branch block; however, his first set of cardiac enzyme was normal. He has had second troponin, which was also less than 0.017. We did consult the Cardiology team and the plan is for him to have an echocardiogram done today and we will have stress test done tomorrow given the history and the multiple risk factors for premature coronary artery disease. When I saw him this morning, he was chest pain free. Denied any orthopnea or paroxysmal nocturnal dyspnea. Denied any dizziness or lightheadedness. PHYSICAL EXAMINATION: GENERAL: When I examined him, he looked well and was clearly in no apparent respiratory distress. VITAL SIGNS: His heart rate was 70, blood pressure was 130/73, temperature was 97.5, respiratory rate was 16 and oxygen saturation was 94%. The rest of clinical examination is unremarkable, has not really changed. LABORATORY DATA: Showed a serum sodium 142, potassium 4.3, chloride 106, bicarbonate 31, anion gap of 5, BUN 18, creatinine 1.1, estimated GFR was 68 mL per minute. His glucose was 105, calcium was 8.4. Troponin was less than 0.017. His white cell count was 8600, hemoglobin 12.7, hematocrit 38, MCV 85 and platelet count 245,000. PLAN: To arrange for an echocardiogram and a stress test as recommended by the Cardiology team. I will also order his fasting lipid profile tomorrow and decide on further management accordingly. JOHNNY AGUIRRE MD DR: LIDIA/ron JOB#: [id number] / [id number]
[2016-07-30 05:21] VITALS: BP 128/70
[2016-07-30] MEDS: IPRATRPIUM/ALBUTEROL 0.5/2.5MG 3 ML NEBU. NEB SCH ×3 (05:31→15:22)
[2016-07-30] MEDS: OMEGA-3 FATTY ACIDS/FISH OIL 1,000 MG CAPSULE. PO SCH (08:12)
[2016-07-30] MEDS: PREGABALIN 75 MG CAPSULE PO SCH (08:12)
[2016-07-30] MEDS: CYCLOBENZAPRINE 10 MG TABLET. PO SCH ×2 (08:12→14:00)
[2016-07-30] MEDS: MULTIVITAMIN I-VITE TABLET. PO SCH (08:12)
[2016-07-30] MEDS: FAMOTIDINE 20 MG TABLET PO SCH (08:12)
[2016-07-30] MEDS ORDERED: REGADENOSON 0.4 MG/5 ML DISP.SYRIN. IV ONE (08:30)
[2016-07-30 10:40] VITALS: BP 133/83
--- NOTE | 2016-07-30 11:08 | PDOC ---
ANA LEVY CYBER OPS PLANNER 07/30/16 1108: PROGRESS NOTES Diagnosis Problem Problems Medical Problems: (1) Chest pain Status: Acute Assessment Problems Medical Problems: (1) Chest pain Status: Acute 1. chest pain, exertional - MD ruled out, no acute ischemic changes on EKG. Normal EF and wall motion by echo. MPI this am, pending. Aspirin daily. Add beta vane if MPI abnormal. 2. borderline hypertension - remains controlled. 3. diabetes mellitus - per PCP 4. bronchitis - per PCP 5. dyslipidemia - controlled on fish oil Problems: Subjective continues to have cough. mild episode of chest discomfort this am. no palpitations, lightheadedness or syncope. Objective Vital Signs Date Time Temp Pulse Resp B/P (MAP) Pulse Ox O2 Delivery O2 Flow Rate FiO2 07/30/16 10:40 98.1 86 20 133/83 (100) 98 Room Air Intake and Output 07/30/16 07:00 Intake Total 900 ml Balance 900 ml Intake Oral 900 ml # Voids 1 Abdomen: Normal bowel sounds, Soft, No tenderness Heart: Regular rate, Normal S1, Normal S2 Extremities: No cyanosis, Normal pulses General: Alert, Oriented X3, Cooperative, No acute distress Lungs: Other (mildly decreased at bases) Neuro: Normal speech, Strength at 5/5 X4 ext Psych/Mental Status: Mental status NL, Mood NL Review of Relevant I have reviewed the following items chaz (where applicable) has been applied. Labs Laboratory Tests Test 07/28/16 18:05 07/28/16 18:16 07/29/16 01:35 07/29/16 07:22 White Blood Count 11.7 x10^3/uL (4.0-11.0) Red Blood Count 4.56 x10^6/uL (4.30-5.70) Hemoglobin 13.0 g/dL (13.0-17.5) Hematocrit 38.6 % (39.0-53.0) Mean Corpuscular Volume 85 fL (79-100) Mean Corpuscular Hemoglobin 28 pg (25-35) Mean Corpuscular Hemoglobin Concent 34 g/dL (31-37) Red Cell Distribution Width 13.8 % (11.5-14.5) Platelet Count 266 x10^3/uL (140-400) Neutrophils (%) (Auto) 60 % (31-73) Lymphocytes (%) (Auto) 30 % (24-48) Monocytes (%) (Auto) 9 % (0-9) Eosinophils (%) (Auto) 1 % (0-3) Basophils (%) (Auto) 0 % (0-3) Neutrophils # (Auto) 7.0 x10^3uL (1.8-7.7) Lymphocytes # (Auto) 3.5 x10^3/uL (1.0-4.8) Monocytes # (Auto) 1.0 x10^3/uL (0.0-1.1) Eosinophils # (Auto) 0.1 x10^3/uL (0.0-0.7) Basophils # (Auto) 0.0 x10^3/uL (0.0-0.2) Sodium Level 140 mmol/L (136-145) Potassium Level 3.9 mmol/L (3.5-5.1) Chloride Level 103 mmol/L (98-107) Carbon Dioxide Level 32 mmol/L (21-32) Anion Gap 5 (6-14) Blood Urea Nitrogen 19 mg/dL (8-26) Creatinine 1.3 mg/dL (0.7-1.3) Estimated GFR (Cockcroft-Gault) 56.5 BUN/Creatinine Ratio 15 (6-20) Glucose Level 117 mg/dL (70-99) Calcium Level 8.6 mg/dL (8.5-10.1) Total Bilirubin 0.3 mg/dL (0.2-1.0) Aspartate Amino Transf (AST/SGOT) 12 U/L (15-37) Alanine Aminotransferase (ALT/SGPT) 34 U/L (16-63) Alkaline Phosphatase 79 U/L (46-116) Total Protein 6.8 g/dL (6.4-8.2) Albumin 3.4 g/dL (3.4-5.0) Albumin/Globulin Ratio 1.0 (1.0-1.7) Bedside Troponin I 0.01 ng/ml (<0.08) Troponin I Quantitative < 0.017 ng/mL (0-0.055) Glucose (Fingerstick) 92 mg/dL (70-99) Test 07/29/16 07:45 07/29/16 11:32 07/29/16 20:18 07/30/16 07:43 White Blood Count 8.6 x10^3/uL (4.0-11.0) Red Blood Count 4.48 x10^6/uL (4.30-5.70) Hemoglobin 12.7 g/dL (13.0-17.5) Hematocrit 38.0 % (39.0-53.0) Mean Corpuscular Volume 85 fL (79-100) Mean Corpuscular Hemoglobin 28 pg (25-35) Mean Corpuscular Hemoglobin Concent 33 g/dL (31-37) Red Cell Distribution Width 13.9 % (11.5-14.5) Platelet Count 245 x10^3/uL (140-400) Neutrophils (%) (Auto) 55 % (31-73) Lymphocytes (%) (Auto) 31 % (24-48) Monocytes (%) (Auto) 11 % (0-9) Eosinophils (%) (Auto) 3 % (0-3) Basophils (%) (Auto) 0 % (0-3) Neutrophils # (Auto) 4.7 x10^3uL (1.8-7.7) Lymphocytes # (Auto) 2.7 x10^3/uL (1.0-4.8) Monocytes # (Auto) 0.9 x10^3/uL (0.0-1.1) Eosinophils # (Auto) 0.2 x10^3/uL (0.0-0.7) Basophils # (Auto) 0.0 x10^3/uL (0.0-0.2) Sodium Level 142 mmol/L (136-145) Potassium Level 4.3 mmol/L (3.5-5.1) Chloride Level 106 mmol/L (98-107) Carbon Dioxide Level 31 mmol/L (21-32) Anion Gap 5 (6-14) Blood Urea Nitrogen 18 mg/dL (8-26) Creatinine 1.1 mg/dL (0.7-1.3) Estimated GFR (Cockcroft-Gault) 68.5 Glucose Level 105 mg/dL (70-99) Calcium Level 8.4 mg/dL (8.5-10.1) Troponin I Quantitative < 0.017 ng/mL (0-0.055) Triglycerides Level 124 mg/dL (0-150) Cholesterol Level 152 mg/dL (0-200) LDL Cholesterol, Calculated 82 mg/dL (0-100) VLDL Cholesterol, Calculated 24 mg/dL (0-40) Non-HDL Cholesterol Calculated 106 mg/dL (0-129) HDL Cholesterol 46 mg/dL (40-60) Cholesterol/HDL Ratio 3.0 Glucose (Fingerstick) 135 mg/dL (70-99) 133 mg/dL (70-99) 128 mg/dL (70-99) Medications Current Medications Sodium Chloride 1,000 ml @ 1,000 mls/hr 1X ONCE IV Last administered on 18:00; Start 07/28/16 at 18:30; Stop 07/28/16 at 19:29; Status DC Iohexol (Omnipaque 300 Mg/ml) 75 ml 1X ONCE IV Last administered on 07/28/16 18:58; Start 07/28/16 at 18:30; Stop 07/28/16 at 18:31; Status DC Info (Do NOT chart on this entry -- for MONITORING) 1 each PRN DAILY PRN MC SEE COMMENTS; Start 07/28/16 at 18:30; Stop 07/30/16 at 18:29 Ondansetron HCl (Zofran) 4 mg PRN Q4HRS PRN IV NAUSEA/VOMITING; Start 07/28/16 at 20:45; Stop 07/29/16 at 20:44; Status DC Morphine Sulfate (Morphine 4mg Syringe) 4 mg PRN Q2HR PRN IV PAIN Last administered on 07/28/16 22:01; Start 07/28/16 at 20:45; Stop 07/29/16 at 20:44; Status DC Acetaminophen (Tylenol) 650 mg PRN Q4HRS PRN PO FEVER; Start 07/28/16 at 20:45; Stop 07/29/16 at 20:44; Status DC Nitroglycerin (Nitrostat) 0.4 mg PRN Q5MIN PRN SL CHEST PAIN; Start 07/28/16 at 20:45; Stop 07/29/16 at 20:44; Status DC Terazosin HCl (Hytrin) 10 mg QHS PO Last administered on 07/29/16 21:14; Start 07/28/16 at 22:45 Aspirin (Gilberto Aspirin) 325 mg 1X ONCE PO Last administered on 07/28/16 22:30 ; Start 07/28/16 at 22:30; Stop 07/28/16 at 22:31; Status DC Albuterol Sulfate (Ventolin Hfa) PRN PRN Q4HRS PRN IH WHEEZING; Start 07/29/16 at 07:45; Stop 07/29/16 at 07:53; Status DC Cyclobenzaprine HCl (Flexeril) 10 mg PRN QHS PRN PO PAIN; Start 07/29/16 at 07: 45 Cyclobenzaprine HCl (Flexeril) 10 mg TID PO Last administered on 07/29/16 21:14 ; Start 07/29/16 at 09:00 Diazepam (Valium) 5 mg PRN QHS PRN PO sleep; Start 07/29/16 at 07:45 Guaifenesin (Mucinex Er) 1,200 mg BID PO ; Start 07/29/16 at 09:00 Acetaminophen/ Hydrocodone Bitart (Lortab 5/325) 1 tab PRN Q6HRS PRN PO PAIN; Start 07/29/16 at 07:45 Metformin HCl (Glucophage) 500 mg BID PO ; Start 07/29/16 at 09:00; Stop 07/29/16 at 09:00; Status DC Fish Oil (Fish Oil) 1,000 mg DAILY PO Last administered on 07/29/16 08:22; Start 07/29/16 at 09:00 Pregabalin (Lyrica) 150 mg BID PO Last administered on 07/29/16 21:14; Start at 09:00 Tramadol HCl (Ultram) 50 mg PRN Q6HRS PRN PO PAIN; Start 07/29/16 at 07:45 Multivitamins/ Calcium (Thera-M Plus) 1 tab DAILY PO ; Start 07/29/16 at 09:00; Stop 07/29/16 at 09:00; Status DC Multivitamins/ Minerals (I-Veronique) 1 tab DAILY PO Last administered on 07/29/16 08:22; Start 07/29/16 at 09:00 Famotidine (Pepcid) 20 mg BID PO Last administered on 07/29/16 21:15; Start 07/29/16 at 09:00 Non-Formulary Medication 1 cap DAILY IH ; Start 07/29/16 at 09:00; Stop 07/29/16 at 09:00; Status DC Albuterol/ Ipratropium (Duoneb) 3 ml RTQID NEB Last administered on 07/30/16t 05 :31; Start 07/29/16 at 08:00 Albuterol Sulfate (Ventolin) 2.5 mg PRN Q4HRS PRN NEB SHORTNESS OF BREATH; Start 07/29/16 at 08:00 Regadenoson (Lexiscan) 0.4 mg 1X ONCE IV ; Start 07/30/16 at 08:30; Stop at 08:31; Status DC Metformin HCl (Glucophage) 500 mg BIDWMEALS PO ; Start 07/30/16 at 17:00 Active Scripts Active Proventil Hfa Inhaler (Albuterol Sulfate) 6.7 Gm Hfa.aer.ad 1-2 Puff IH PRN Q4HRS PRN 7 Days Please dispense inhaler with a spacer Hydrocodone-Apap 5-325 (Hydrocodone Bit/Acetaminophen) 1 Each Tablet 1 Tab PO PRN Q6HRS PRN 7 Days Spiriva (Tiotropium [place]) 18 Mcg Cap.w.dev 1 Cap IH DAILY Reported Cyclobenzaprine Hcl 10 Mg Tablet 1 Tab PO PRN QHS PRN Valium (Diazepam) 5 Mg Tablet 5 Mg PO PRN QHS PRN Tramadol Hcl (Tramadol HCl) 50 Mg Tablet 50 Mg PO PRN Q6HRS PRN Guaifenesin 600 Mg Tablet.er 2 Tab PO BID Cyclobenzaprine Hcl 10 Mg Tablet 1 Tab PO TID Terazosin Hcl 10 Mg Capsule 1 Cap PO HS LAST DOSE GIVEN: DATE: TIME: NEXT DOSE DUE: DATE: TIME: Fish Oil 1,000 Mg Capsule ([place]-3 Fatty Acids/Fish Oil) 1 Each Capsule 1 Each PO DAILY LAST DOSE GIVEN: DATE: TIME: NEXT DOSE DUE: DATE: TIME: Metformin Hcl 500 Mg Tablet 1 Tab PO BID LAST DOSE GIVEN: DATE: TIME: NEXT DOSE DUE: DATE: TIME: Centrum Silver Tablet (Multivits-Min/Fa/Lycopene/Lut) 1 Each Tablet 1 Each PO DAILY LAST DOSE GIVEN: DATE: TIME: NEXT DOSE DUE: DATE: TIME: Thera (Multivitamins,Therapeutic) 1 Each Tablet 1 Each PO DAILY LAST DOSE GIVEN: DATE: TIME: NEXT DOSE DUE: DATE: TIME: Zantac (Ranitidine Hcl) 150 Mg Tablet 1 Tab PO BID LAST DOSE GIVEN: DATE: TIME: NEXT DOSE DUE: DATE: TIME: Lyrica (Pregabalin) 75 Mg Capsule 150 Mg PO BID LAST DOSE GIVEN: DATE: TIME: NEXT DOSE DUE: DATE: TIME: Vitals/I & O Vital Sign - Last 24 Hours 07/29/16 07/29/16 07/29/16 07/29/16 14:40 15:52 18:28 20:35 Temp 97.4 97.5 Pulse 69 74 Resp 20 20 B/P (MAP) 164/67 (99) 126/73 (90) Pulse Ox 94 96 95 97 O2 Delivery Room Air Room Air Room Air Room Air 07/29/16 07/29/16 07/30/16 07/30/16 21:14 23:30 05:21 05:32 Temp 97.7 98.2 Pulse 74 79 76 Resp 18 18 B/P (MAP) 126/73 129/81 (97) 128/70 (89) Pulse Ox 93 94 94 O2 Delivery Room Air Room Air Room Air 07/30/16 10:40 Temp 98.1 Pulse 86 Resp 20 B/P (MAP) 133/83 (100) Pulse Ox 98 O2 Delivery Room Air Intake and Output 07/29/16 07/29/16 07/30/16 15:00 23:00 07:00 Intake Total 240 ml 240 ml 420 ml Balance 240 ml 240 ml 420 ml BRIGHT SALDANA MD 07/30/16 1616: PROGRESS NOTES Review of Relevant Pt. seen and examined. 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 61 y.o male with atypical chest pain. multiple risk factors. Mild MPI abnormality. Pt. has no angina. Denies any exertional dyspnea. He would like to continue conservative mgmt. Will send home on asa, b-vane and statin. Follow up in the office with any symptoms. He understands the r/b/a to cath. Given his normal EF, lack of significant ischemic burden, not unreasonable to pursue medical therapy given lack of any significant symptoms. ANA LEVY APRN Jul 30, 2016 11:08 BRIGHT SALDANA MD Jul 30, 2016 16:16
--- NOTE | 2016-07-30 13:16 | RAD ---
APPROVED REPORT Test Type: Pharmacological Stress Nurse/Tech: RT Belinda (Khadra) (N) Test Indications: chest pain, short of breath, diaphoresis, weakness Cardiac History: none Medications: see ehr Medical History: see ehr Resting ECG: sinus rythm, right bundle branch block Resting Heart Rate: 75 bpm Resting Blood Pressure: 133/74mmHg Pretest Chest Pain: None Nurse/Tech Notes Consent: The procedure was explained to the patient in lay terms. Informed consent was witnessed. Hilario eout was entered into [employer]. History and Stress Test performed by RT Belinda (Khadra) (N) Pharm. Details Pharmacologic stress testing was performed using 0.4mg per 5ml of regadenoson given intravenously ove r 7-10 seconds. POST EXERCISE Reason for Termination: Infusion complete Max HR: 109 bpm Max Blood Pressure: 148/70mmHg INTERPRETATION Stress EKG Conclusion: The resting EKG showed a sinus rhythm with a right bundle branch block. Stress EKG showed no significant changes from baseline. No EKG evidence of stress-induced ischemia. Imaging Protocol IMAGE PROTOCOL: Rest Tc-99m/stress Tc-99m 1 day Rest: Stress: Viability: Radiopharm.Tc99m [id number] Sestamibi [id number] 33.4mCi Duration 20min. 20min. Img Date 07/30/2016 07/30/2016 Inj-Img [id number]. 60min. Rest Admin Site:IV - Right AntecubitalAdministrator: RT Belinda (R)(N) Stress Admin Site: IV - Right AntecubitalAdministrator: RT Belinda (Khdara)(N) STRESS DATA End Diast. Vol.120.0mlAv. Heart Rate74.0bpm LVEDV index BSA2.0mlCardiac Output0.1L/min End Syst. Vol.29.0mlCO Index BSA6.7L/min LVESV index BSA0.0mlMyocardial Rmec864.0g Eject. Rapgsueg04.0% Stress Rates Pk. Fill Rate3.03EDV/secLVtime Pk. Fill 155.21msec Pk. Empty Rate3.62ESV/secLVtime Pk. Vdgzj797.72msec / Pk. Fill1.33EDV/sec Stress Scores Regional WT0.00Summed WT3.00 Regional WM0.00Summed WM0.00 LV Perfusion The stress scans show a small inferior defect. The rest scans showed no significant defects. Nuclear imaging showed a small area of reversible ischemia in the inferior wall. Wall Motion Left ventricular systolic function is normal with an ejection fraction of greater than 70%. LV Perf. Quant 17 Seg. SSS2.00 17 Seg. SRS0.00 17 Seg. SDS2.00 Stress Defect Extent (% LAD)0.00Rest Defect Extent (% LAD)0.00Rev. Defect Extent (% LAD)0.00 Stress Defect Extent (% LCX) 8.80Rest Defect Extent (% LCX)0.00Rev. Defect Extent (% LCX)8.80 Stress Defect Extent (% RCA)11.10Rest Defect Extent (% RCA)0.00Rev. Defect Extent (% RCA)11.10 Stress Defect Extent (% BRANDT)3.70Rest Defect Extent (% BRANDT)0.00Rev. Defect Extent (% BRANDT)3.70 Conclusion 1. No EKG evidence of stress-induced ischemia. 2. Nuclear imaging just a small area of reversible ischemia in the inferior wall. 3. Normal left ventricular systolic function with an ejection fraction of greater than 70%. 4. Moderate risk Lexiscan nuclear stress test.
[2016-07-30 14:20] VITALS: BP 131/72
[2016-07-30] MEDS ORDERED: metFORMIN 500 MG TABLET PO SCH (17:00)
[2016-07-30] MEDS ORDERED: ATOR20TA58 PO (17:04)
[2016-07-30] MEDS ORDERED: METO25TA4 PO (17:04)
--- NOTE | 2016-07-31 00:34 | DS ---
DATE OF DISCHARGE: 07/30/2016 HOSPITAL COURSE: The patient is a 61-year-old male patient who came with chest pain with exertion; however, myocardial infarction was ruled out. There was no acute ischemic changes in his EKG. He has normal ejection fraction and wall motion abnormalities by an echocardiogram. He has had his nuclear scan showed that he has no EKG evidence of stress induced ischemia on nuclear imaging just a small area of reversible ischemia in the inferior wall. He has normal left ventricular systolic function, ejection fraction of greater than 70% given that he has no angina. Denied any exertional dyspnea. The patient would like to continue conservative management and will be sent home on aspirin, beta-blockers, and statins. Follow up in the office given his normal ejection fraction lacks significant ischemic burden. It is not unreasonable to pursue medical therapy given lack of any significant symptoms. The patient will be discharged home to follow up with the Cardiology office as an outpatient. PHYSICAL EXAMINATION: GENERAL: When I saw him this afternoon, he looked well and was clearly in no apparent respiratory distress. No pallor, jaundice, cyanosis or thyromegaly. No jugular venous distension. No lower limb edema. VITAL SIGNS: Her heart rate was 84, blood pressure was 131/72, temperature was 97.8, respiratory rate 20, and oxygen saturation was 96%. The rest of clinical examination is unremarkable has not really changed. LABORATORY DATA: His lab work showed a white cell count of 8600, hemoglobin 12.7, hematocrit 38, MCV 85, and platelet count 245,000. His chemistry showed a serum sodium 142, potassium 4.3, chloride 106, bicarbonate 31, anion gap of 5, BUN 18, creatinine 1.1, estimated GFR was 68 mL per minute. His glucose was 105, calcium was 8.4. He has 3 sets of troponins showed troponin to be less than 0.017. His triglycerides were 124. Cholesterol 152, LDL was 82, VLDL was 24, non-HDL cholesterol 106 and HDL cholesterol was 54 and the ratio was 3. DISCHARGE MEDICATIONS: He will be discharged home to continue on albuterol sulfate 1-2 puffs every 4 hours, cyclobenzaprine 10 mg 3 times a day, diazepam 5 mg at bedtime as needed, Mucinex 1200 mg twice a day, hydrocodone/APAP 5/325 one tablet every 6 hours, metformin 500 mg p.o. b.i.d., multivitamin 1 tablet once a day, Krebs-3 fatty acid 1 capsule once a day, pregabalin for Lyrica 150 mg twice a day, ranitidine 150 mg twice a day, terazosin 10 mg at bedtime, tiotropium bromide for Spiriva 1 inhalation once a day and tramadol 50 mg every 6 hours as needed. FINAL DISCHARGE DIAGNOSES: Chest pain that is exertional; however, myocardial infarction was ruled out. He has no acute ischemic changes on EKG and his nuclear medicine scan showed that no EKG evidence of stress-induced ischemia nuclear imaging just a small area of reversible ischemia in the inferior wall, normal left ventricular systolic function, ejection fraction greater than 70%. Other issues include borderline hypertension, type 2 diabetes mellitus, and dyslipidemia. JOHNNY AGUIRRE MD DR: LIDIA/ron JOB#: [id number] / [id number]
[2016-07-31] MEDS ORDERED: ASPIRIN ENTERIC COATED 81 MG TABLET.DR. PO SCH (08:00)
== END 2016-07-30 17:32 | disposition home or self-care (01) ==
LOC: ER 17:28 → 1 SOUTH 20:33
PROVIDERS: ADMIT Internal Medicine; ATTEND Internal Medicine
DX: R07.89 Other chest pain (principal); R03.0 Elevated blood-pressure reading, without diagnosis of hypertension; E11.9 Type 2 diabetes mellitus without complications; E78.5 Hyperlipidemia, unspecified; I45.10 Unspecified right bundle-branch block; J06.9 Acute upper respiratory infection, unspecified; J44.9 Chronic obstructive pulmonary disease, unspecified; K21.9 Gastro-esophageal reflux disease without esophagitis; M79.7 Fibromyalgia; N40.0 Benign prostatic hyperplasia without lower urinary tract symptoms; G47.33 Obstructive sleep apnea (adult) (pediatric); J40 Bronchitis, not specified as acute or chronic; Z87.891 Personal history of nicotine dependence; Z96.652 Presence of left artificial knee joint; Z83.3 Family history of diabetes mellitus; Z80.0 Family history of malignant neoplasm of digestive organs; Z80.8 Family history of malignant neoplasm of other organs or systems
CPT/HCPCS: 36415; 71010; 71275; 78452; 80048; 80053; 80061; 82947; 84484; 85027; 93005; 93017; 93306; 94640; 96361; 96374; 99285; A9500; G0378; J2270; J2785; J7620; Q9967; 96375; 96376; G0379; J7030